=== PATIENT | female | born 1990 | race Caucasian/White ===

== ENCOUNTER 2017-03-01 14:09 | Emergency (ER) | payer MEDICAID ==
[~2017-03-01] VITALS: Ht 165.1 cm; Wt 108.6 kg
[2017-03-01 14:12] VITALS: BP 134/97
[2017-03-01] MEDS ORDERED: ONDANSETRON 2MG/ML, 2ML IVPush ONE (15:00)
[2017-03-01] MEDS ORDERED: SODIUM CHLORIDE 0.9% 1,000ML IVBOLUS ONE ×2 (15:00→16:30)
[2017-03-01] MEDS ORDERED: SODIUM CHLORIDE FLUSH 10ML SYR IVF ONE (15:00)
[2017-03-01] MEDS ORDERED: ONDANSETRON 2MG/ML, 2ML ONE (15:14)
[2017-03-01 15:25] LABS: ASPARTATE AMINO TRANSFERASE 11 U/L (15-37); BLOOD UREA NITROGEN 11 mg/dL (7-18)
[2017-03-01 15:39] LABS: HEMATOCRIT 44.8 % (34.6-47.8); HEMOGLOBIN 14.7 g/dL (11.7-16.4); WHITE BLOOD COUNT 10.3 x10^3/uL (3.4-10)
[2017-03-01 16:26] LABS: HCG UR LOT HCG7030192
[2017-03-01] MEDS ORDERED: PROMETHAZINE 25 MG/ML, 1ML ONE (16:26)
[2017-03-01] MEDS ORDERED: PROMETHAZINE 25 MG/ML, 1ML IM ONE (16:30)
[2017-03-01] MEDS ORDERED: ALBU8.5H8 IH (16:36)
[2017-03-01 16:38] LABS: HCG UR OBC PASS
== END 2017-03-01 19:37 | disposition home or self-care (01) ==
LOC: ED 16:09
DX: A08.4 Viral intestinal infection, unspecified (principal)
CPT/HCPCS: 36415; 80053; 81001; 81003; 81025; 83690; 85025; 87086; 96361; 96372; 96374; 99285; J2405; J2550; J7030

== ENCOUNTER 2017-03-08 20:00 | Emergency (ER) | payer MEDICAID ==
[~2017-03-08] VITALS: Ht 165.1 cm; Wt 108.0 kg
[~2017-03-08 20:00] MED LIST: ALBU8.5H8 IH
[2017-03-08 22:29] VITALS: BP 141/89
== END 2017-03-08 22:29 | disposition home or self-care (01) ==
LOC: ED 21:54
DX: M25.552 Pain in left hip (principal); M25.562 Pain in left knee; G89.29 Other chronic pain; F60.3 Borderline personality disorder; R26.2 Difficulty in walking, not elsewhere classified; J45.909 Unspecified asthma, uncomplicated
CPT/HCPCS: 99284

== ENCOUNTER 2017-04-06 12:19 | Emergency (ER) | payer MEDICAID ==
[~2017-04-06] VITALS: Ht 165.1 cm; Wt 104.5 kg
[2017-04-06 12:22] VITALS: BP 139/81
== END 2017-04-06 13:19 | disposition home or self-care (01) ==
LOC: ED 13:13
DX: J45.31 Mild persistent asthma with (acute) exacerbation (principal); J20.8 Acute bronchitis due to other specified organisms; F17.210 Nicotine dependence, cigarettes, uncomplicated
CPT/HCPCS: 99283